=== PATIENT | female | born 2000 | race Caucasian/White ===

== ENCOUNTER 2024-12-16 01:45 | Emergency (ER) | payer OTHER ==
[~2024-12-16] VITALS: Ht 172.7 cm; Wt 72.6 kg
[2024-12-16] MEDS ORDERED: IBUPROFEN 400 MG TABLET ONE (02:28)
[2024-12-16] MEDS: IBUPROFEN 400 MG TABLET PO ONE (02:31)
[2024-12-16 03:26] VITALS: BP 121/80; TEMP 98; O2SAT 98
== END 2024-12-16 03:26 | disposition home or self-care (01) ==
LOC: ER 02:05
DX: R07.89 Other chest pain (principal); F17.290 Nicotine dependence, other tobacco product, uncomplicated; Z71.6 Tobacco abuse counseling
CPT/HCPCS: 71045-TC